=== PATIENT | female | born 1990 | race African-American/Black ===

== ENCOUNTER 2016-03-09 19:14 | Emergency (ER) | payer SELFPAY ==
[~2016-03-09] VITALS: Ht 162.6 cm; Wt 66.7 kg
[2016-03-09 19:39] VITALS: BP 123/73
== END 2016-03-09 22:49 | disposition left against medical advice (07) ==
LOC: ER 19:32
DX: M79.645 Pain in left finger(s) (principal); W22.8XXA Striking against or struck by other objects, initial encounter; Y93.89 Activity, other specified; Y99.8 Other external cause status; Y92.59 Other trade areas as the place of occurrence of the external cause; Z53.21 Procedure and treatment not carried out due to patient leaving prior to being seen by health care provider
CPT/HCPCS: 73130

== ENCOUNTER 2016-12-05 20:21 | Emergency (ER) | payer MEDICAID, OTHER ==
[~2016-12-05] VITALS: Ht 162.6 cm; Wt 61.2 kg
[2016-12-05 23:49] VITALS: BP 102/80
== END 2016-12-06 00:29 | disposition home or self-care (01) ==
LOC: ER 20:25
DX: S13.4XXA Sprain of ligaments of cervical spine, initial encounter (principal); V49.9XXA Car occupant (driver) (passenger) injured in unspecified traffic accident, initial encounter; Y93.89 Activity, other specified; Y99.8 Other external cause status; Y92.488 Other paved roadways as the place of occurrence of the external cause
CPT/HCPCS: 71010; 72040

== ENCOUNTER 2018-12-17 11:23 | Inpatient (IN) | payer OTHER ==
[~2018-12-17] VITALS: Ht 162.6 cm; Wt 56.7 kg
[2018-12-17] MEDS: LACTATED RINGER'S 1,000 ML IV SCH (11:25)
[2018-12-17] MEDS ORDERED: LACT. RINGERS/OXYTOCIN 20UNITS 500 ML IV ONE (11:30)
[2018-12-17] MEDS ORDERED: LACT. RINGERS/OXYTOCIN 20UNITS 1,000 ML IV SCH (11:54)
[2018-12-17] MEDS ORDERED: DERMOPLAST 60ML BOTTLE TOP PRN (12:00)
[2018-12-17] MEDS ORDERED: WITCH HAZEL-GLYCERIN PAD TOP PRN (12:00)
[2018-12-17] MEDS ORDERED: PHISODERM TOP SOLN 240ML BTL TOP PRN (12:00)
[2018-12-17 12:37] LABS: Basophils # (auto) 0 uL; Basophils % (auto) 0.1 % (0.0-2.0); Eosinophils # (auto) 0 uL; Eosinophils % (auto) 0.1 % (0.0-7.0); Hematocrit 27.7 % (36.0-46.0); Hemoglobin 9.2 g/dL (12.2-16.2); Lymphocytes # (auto) 1.4 uL; Lymphocytes % (auto) 6.8 % (10.0-50.0); Mean Corpuscular Hemoglobin 30.7 pg (28.0-32.0); Mean Corpuscular Hgb Conc. 33.4 g/dL (32.0-36.0); Monocytes # (auto) 0.8 uL; Monocytes % (auto) 3.9 % (0.0-12.0); Neutrophils # (auto) 18.6 uL; Neutrophils % (auto) 89.1 % (37.0-80.0); Platelet Count (auto) 226 10^3/uL (140-450); Red Blood Cells 3.01 10^6/uL (4.0-5.20); Red Cell Distribution Width 12.7 % (11.8-14.3); White Blood Cell 20.9 10^3/uL (4.4-10.8)
[2018-12-17 12:54] LABS: INR < 0.93 (0.9-1.15); Partial Thromboplastin Time 30.2 sec (23.64-32.05)
[2018-12-17 13:11] LABS: BUN/Creatinine Ratio 14.1; Calcium 7.6 mg/dL (8.5-10.1); Potassium 3.9 mmol/L (3.5-5.1)
[2018-12-17 13:13] LABS: Bilirubin, Total 0.3 mg/dL (0.2-1.0); Total Protein 5.5 g/dL (6.4-8.2)
[2018-12-17] MEDS ORDERED: OXYTOCIN 10UNIT/ML 1ML VIAL IV ONE (13:21)
--- NOTE | 2018-12-17 13:40 | NUR ---
Ambulation: Patient OOB with standby assistance by RN. Patient ambulated to bathroom with steady gait. Patient unable to void at this time. [facility] teaching provided with returned demonstration by patient. Clean gown provided and bed linen changed. Patient ambulated back to bed with steady gait and no distress noted; pt very sleepy at this time.
[2018-12-17 15:00] VITALS: BP 123/80
--- NOTE | 2018-12-17 16:00 | NUR ---
Pt is not easily awakened at this time; pt states that she is very tired; Aldo Horton is at bedside caring for infant. Pt vital signs stable.
--- NOTE | 2018-12-17 16:45 | NUR ---
Ambulation: Patient OOB with standby assistance by RN. Patient ambulated to bathroom with steady gait. Patient able to void 550mL without difficulty. [facility] teaching provided with returned demonstration by patient. Patient ambulated back to bed with steady gait and no distress noted.
[2018-12-17] MEDS ORDERED: PREN-96 PO (17:41)
[2018-12-17 18:01] LABS: Alcohol, Urine < 3.0 mg/dL (0-5); Amphetamine Screen, Urine POSITIVE (NEGATIVE); Barbiturate Scree,Urine NEGATIVE (NEGATIVE); Benzodiazephine Screen, Urine NEGATIVE (NEGATIVE); Cannabinoid Screen, Urine NEGATIVE (NEGATIVE); Cocaine Screen, Urine NEGATIVE (NEGATIVE); Opiate Scree,Urine POSITIVE (NEGATIVE)
[2018-12-17 18:09] LABS: Phencyclidine Screen, Urine NEGATIVE (NEGATIVE)
[2018-12-17] MEDS: IBUPROFEN 600 MG TAB PO PRN (19:43)
[2018-12-17 23:21] VITALS: BP 112/62
[2018-12-18] MEDS: IBUPROFEN 600 MG TAB PO PRN ×2 (00:10→10:29)
[2018-12-18 03:00] VITALS: BP 117/65
[2018-12-18] MEDS: LACTATED RINGER'S 1,000 ML IV SCH ×2 (03:54→08:53)
[2018-12-18 05:06] LABS: RPR Non Reactive (Non Reactive)
[2018-12-18 06:45] VITALS: BP 111/68
[2018-12-18] MEDS ORDERED: AMMONIA 0.33 ML INHALANT IN ONE (07:37)
--- NOTE | 2018-12-18 08:11 | NUR ---
DIE MECHANIC PAGED DIE MECHANIC REGARDING CONSULT. AWAITING CALL BACK.
--- NOTE | 2018-12-18 08:27 | NUR ---
CLERICAL ASSOCIATE SILVANA FROM CASE MANAGEMENT CALLED ABOUT CONSULT, TRANSFERRED INTO PT ROOM 105 TO TALK WITH PATIENT.
--- NOTE | 2018-12-18 08:49 | NUR ---
ONCOLOGY ACCOUNT SPECIALIST SILVANA FROM CASE MANAGEMENT CALLED AND STATED PT IS CLEARED FOR DISCHARGE. WILL CONTINUE TO MONITOR.
--- NOTE | 2018-12-18 09:24 | NUR ---
faculty i on call medical assistant 12/18/18 I received a page from Nurse Hendrix regarding social service consult for this patient. I spoke with patient via phone-she let me know she used [place] and amphetamines-she stated that she does not plan on using anymore. She stated she has three other children that do not live with her. She states that she lives with her sister Diane at phone number [phone], and that her sister will be helping her with the baby. She does have insurance for the baby, she has a car seat, all utilities working in the home, sister will transport her home. Per patient there are no dangerous animals or weapons in the home. Patient denies feelings of depression or anxiety at this time. The home has working smoke detectors. Patient's stated due date was January 06-she did not plan on delivering at home-she stated it just happened. I called [employer]PS and spoke with Pedrito Cerna, .
--- NOTE | 2018-12-18 10:34 | NUR ---
Discharge: Discharge instructions given as ordered. Pt encouraged to follow up with CUTTING MACHINE OPERATOR as instructed. All questions and concerns addressed. Patient verbalized understanding. Medication reconciliation completed and copy given to patient. Patient encouraged to prepare to depart unit.
[2018-12-18 10:39] VITALS: BP 119/65
--- NOTE | 2018-12-18 11:57 | NUR ---
DR. GOMEZ ON UNIT AN STATED PT CAN BE DISCHARGED HOME. PREPARING PT FOR DISCHARGE HOME.
--- NOTE | 2018-12-18 12:00 | NUR ---
PT STATED THAT ALL HER CLOTHES "WERE BLOODY" AND HAS NO CLOTHES TO GO HOME WITH. THIS RN GAVE PATIENT CLOTHING FROM CLOTHING CLOSET AND SHOES. PT GETTING READY FOR DEPARTURE.
--- NOTE | 2018-12-18 12:05 | NUR ---
Discharge: Patient ambulated via steady gait outside with family member with all personal belongings, pt declined wheelchair. No distress noted at time of departure, no adverse changes in status since initial assessment.
--- NOTE | 2018-12-18 13:26 | NUR ---
CALLED IN [facility] 100MG PO BID #[id number] TO [facility] [address] [phone] Addendum: 12/18/18 at 1332 by Shawna Giordano RN WRONG PATIENT, DISREGARD
[2018-12-19 07:09] LABS: Rubella Antibodies, IgG 1.05 index (Immune >0.99)
== END 2018-12-18 12:05 | disposition home or self-care (01) | DRG 560 ==
LOC: LDRP 11:23 → UNDOADMIN 11:33 → LDRP 11:33
PROVIDERS: ADMIT Specialist; ATTEND Specialist
PROC: 10E0XZZ Delivery of Products of Conception, External Approach (ICD-10-PCS; principal; 2018-12-17)
DX: Z39.0 Encounter for care and examination of mother immediately after delivery (principal); Z37.0 Single live birth
CPT/HCPCS: 36415; 59414; 80053; 80307; 84112; 85025; 85610; 85730; 86592; 86703; 86762; 86850; 86900; 86901; 87340; 96365; 96366; G0378

== ENCOUNTER 2019-11-03 03:54 | Emergency (ER) | payer OTHER ==
[~2019-11-03] VITALS: Ht 162.6 cm; Wt 49.9 kg
[~2019-11-03 03:54] MED LIST: PREN-96 PO
[2019-11-03 04:04] VITALS: BP 111/61
[2019-11-03] MEDS ORDERED: ACETAMINOPHEN 325 MG TAB PO ONE (05:15)
[2019-11-03 05:24] LABS: Urine Bacteria FEW /hpf (None Seen); Urine Blood Negative /uL (Negative); Urine Specific Gravity 1.023 (1.001-1.035); Urine WBC 6 /hpf (0 - 5)
[2019-11-03 05:36] LABS: Alcohol, Urine < 3.0 mg/dL (0-10); Amphetamine Screen, Urine POSITIVE (NEGATIVE); Barbiturate Scree,Urine NEGATIVE (NEGATIVE); Cannabinoid Screen, Urine NEGATIVE (NEGATIVE); Cocaine Screen, Urine NEGATIVE (NEGATIVE); Opiate Scree,Urine NEGATIVE (NEGATIVE); Phencyclidine Screen, Urine NEGATIVE (NEGATIVE)
[2019-11-03 05:46] LABS: Benzodiazephine Screen, Urine NEGATIVE (NEGATIVE)
== END 2019-11-03 05:57 | disposition home or self-care (01) ==
LOC: ER 03:56
DX: M54.16 Radiculopathy, lumbar region (principal); N39.0 Urinary tract infection, site not specified
CPT/HCPCS: 80307; 81001; 81025